=== PATIENT | female | born 2005 | race Caucasian/White ===

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

== ENCOUNTER 2023-07-09 12:27 | Emergency (ER) | payer SELFPAY ==
[2023-07-09 12:34] VITALS: BP 156/78; PULSE 92; RESP 20; TEMP 36.8; O2SAT 92
[2023-07-09 12:49] VITALS: BP 156/78; PULSE 92; RESP 20; TEMP 36.8; O2SAT 92
--- NOTE | 2023-07-09 12:50 | ED.URI ---
HPI - URI/Sore Throat General Chief Complaint: Upper Respiratory Infection Stated Complaint: throat Time Seen by Provider: 07/09/23 12:50 History of Present Illness HPI Narrative: 17-year-old female presented for complaint of nasal congestion and sore throat for about 4 days. She denies shortness of breath, wheezing, nausea vomiting, diarrhea, fevers or chills. She is not taking anything for symptoms. Denies known sick contacts. Related Data Home Medications Medication Instructions Recorded Confirmed etonogestrel 68 mg subdermal 1 implant subdermal ONCE 10/23/21 07/09/23 implant (Nexplanon) Allergies Allergy/AdvReac Type Severity Reaction Status Date / Time No Known Allergies Allergy Unknown Verified 07/09/23 12:44 Review of Systems Review of Systems: CONSTITUTIONAL: Denies body aches, fever, chills, or sweats. EYES: Denies visual changes, redness, or discharge. ENT: reports sore throat, rhinorrhea, congestion. CARDIOVASCULAR: Denies chest pain, palpitations, or edema. RESPIRATORY: Denies dyspnea. GASTROINTESTINAL: Denies abdominal pain, nausea, vomiting, or diarrhea. SKIN: Denies rash, itching, or wounds. MUSCULOSKELETAL: Denies back pain, joint pain, or myalgia. NEUROLOGIC: Denies headache PMFSH Past Medical History Medical History PCOS (polycystic ovarian syndrome) Surgical History Surgical History No pertinent past surgical history Family History Family History Father Diabetes mellitus Hypertension Mother Alcoholism Social History Social History Smoking status: Never smoker Alcohol intake: never Substance use: current Substance use type: marijuana Gender identity (if verbalized by the patient): Female Sexual Orientation (if Verbalized by the Patient): Straight or Heterosexual Spiritual care concerns: No Exam Narrative: GENERAL: well-appearing, no acute distress. EYES: conjunctivae clear ENT: Mucous membranes moist. TM pearly hahn with normal light reflex bilaterally; no tragal tenderness. Oropharynx milldy erythematous without lesions. Tonsils not enlarged and without exudate. No drooling, no hoarseness, no trismus, uvula midline. No tripod positioning, hot potato voice, or soft palate swelling. NECK: Supple. No lymphadenopathy CHEST: Clear to auscultation, breath sounds equal. No respiratory distress, speaks in full sentences. HEART: Regular rate and rhythm. No murmur heard. SKIN: Warm, dry, no rash. NEURO: Alert and oriented x3. Course Course Emergency Course: Patient is aware of diagnosis, understands and agrees to treatment plan. Anticipatory guidance given. Patient agrees to follow-up as directed and is aware of reasons to seek care at the emergency department. Portions of this record may have been created with voice recognition software Level of Care: Express Care Visit Vital Signs Vital signs: Vital Signs Temperature 98.2 F 07/09/23 12:34 Pulse Rate 92 07/09/23 12:34 Respiratory Rate 20 07/09/23 12:34 Blood Pressure 156/78 H 07/09/23 12:34 Pulse Oximetry 92 07/09/23 12:34 Oxygen Delivery Room Air 07/09/23 12:34 Temperature 98.2 F 07/09/23 12:49 Pulse Rate 92 07/09/23 12:49 Respiratory Rate 20 07/09/23 12:49 Blood Pressure 156/78 H 07/09/23 12:49 Pulse Oximetry 92 07/09/23 12:49 Oxygen Delivery Room Air 07/09/23 12:49 MDM - URI/Sore Throat MDM Narrative Medical decision making narrative: Neg strep result reviewed with pt.States she will test for covid at home. Advise supportive treatments. Patient is appropriate for outpatient treatment and follow-up. Differential Diagnosis Differential diagnosis: Likely upper respiratory infection, viral infection and pharyngitis
== END 2023-07-09 12:58 | disposition home or self-care (01) ==
PROVIDERS: Emergency Provider Nurse Practitioner Family
DX: J06.9 Acute upper respiratory infection, unspecified (principal)
CPT/HCPCS: 87081; 87880; 99213; G0463